=== PATIENT | female | born 2000 | race Caucasian/White ===

== ENCOUNTER 2025-04-06 11:14 | Emergency (ER) | payer OTHER ==
[2025-04-06 11:29] VITALS: BP 106/70; PULSE 85; RESP 19; TEMP 98.4; BMI 21.4
== END 2025-04-06 11:43 | disposition home or self-care (01) ==
LOC: FER 11:14
DX: J45.20 Mild intermittent asthma, uncomplicated (principal); R05.9 Cough, unspecified
CPT/HCPCS: 99283-25